=== PATIENT | female | born 1965 | race Caucasian/White ===

== ENCOUNTER → 2018-06-09 | Outpatient (CLI) | payer OTHER ==
[~2018-06-09] MED LIST: ATEN25 PO; ATEN50; ATEN50 PO; Afrin15 ML INH; CETI5 PO; DILT120ERA PO; ESOM20 PO; HYDR1TAB94 PO; IBUP600; IBUP600 PO; IBUP800 PO; IRON; IRON150C PO; LISI20 PO; LORA2 PO; LOSA50 PO; ONDA4ODT MM; OXYACE5T PO; Omeprazole20 M1 PO; PROM25 PO; RXLORA1 PO; SERT50 PO; SULTRIDS PO; TETR250 PO; TRAM50; TRAM50 PO
[2018-07-30 10:07] LABS: Performing Lab SYMBIODX; Test Name TISSUE BLOCK
[2018-07-30 10:08] LABS: Result SEE PATHOTH RESULTS
== END ==
LOC: LAB 09:50 → LAB SHORT 09:50
PROVIDERS: Internal Medicine Hematology & Oncology
DX: C18.2 Malignant neoplasm of ascending colon (principal)
CPT/HCPCS: 88341; 88342

== ENCOUNTER → 2018-08-27 | Outpatient (CLI) | payer OTHER | END | disposition home or self-care (01) | LOC: LAB SHORT 09:01 → LAB 09:01 → EDSTATUS 08-26 15:50 → LAB FUT 08-26 15:50 | DX: N39.0 Urinary tract infection, site not specified (principal) | CPT/HCPCS: 87086 ==

== ENCOUNTER 2019-05-24 05:53 | Day surgery (SDC) | payer OTHER ==
[~2019-05-24] VITALS: Ht 162.6 cm; Wt 97.0 kg
[~2019-05-24 05:53] MED LIST changes: +Flonase 0.05% N16 GM; +HYDCHL25 PO; +LIDOCAINE PAIN1 EACH TOP; +OMEPRAZOLE20 MG PO; +Ondansetron Odt8 MG PO; +Pataday2.5 ML BOTHEYES; +VISINE-A EYE AL15 ML BOTHEYES; +[UNRECOGNIZED DRUG - OTHER]
--- NOTE | 2019-05-24 06:53 | NUR ---
Ambulatory in Day Surgery. History, Chart, Medications and Allergies reviewed before start of procedure. Lungs clear T/O to Auscultation. Patient confirms NPO status and agrees with scheduled surgery. Pre-Op teaching done. Pt verbalizes understanding. Patient States Post-Procedure ride home has been arranged.
--- NOTE | 2019-05-24 11:04 | NUR ---
Patient up to Ambulate independently. Gait steady. Discharge instructions reviewed with patient. Patient verbalizes understanding. Copy given to patient to take home. Discharged via wheelchair to private car for ride home WITH .
--- NOTE | 2019-05-25 13:33 | NUR ---
05/25/19 1333 Meggan Hutton VERIFICATIONS: EDIT CHART.
== END 2019-05-24 22:53 | disposition home or self-care (01) ==
LOC: ORSCMMR 05:53 → ORD 07:30 → ORSCSDS 07:30 → ORSCMMR 22:53
PROVIDERS: Surgery
PROC: 0WUF0JZ Supplement Abdominal Wall with Synthetic Substitute, Open Approach (ICD-10-PCS; principal; 2019-05-24 07:30)
DX: K43.2 Incisional hernia without obstruction or gangrene (principal); Z85.038 Personal history of other malignant neoplasm of large intestine; I10 Essential (primary) hypertension; E78.1 Pure hyperglyceridemia; E66.01 Morbid (severe) obesity due to excess calories; Z68.36 Body mass index [BMI] 36.0-36.9, adult; Z79.899 Other long term (current) drug therapy
CPT/HCPCS: A9270-GY; C1713; C1781; J0171; J0690; J1100; J2250; J2405; J2704; J2710; J3010; J7120

== ENCOUNTER 2019-07-01 12:12 | Day surgery (SDC) | payer OTHER ==
[~2019-07-01] VITALS: Ht 162.6 cm; Wt 94.1 kg
[~2019-07-01 12:12] MED LIST changes: +DILTIAZEM 24HR240 M2 PO; +LOSARTAN POTAS100 MG PO; +Nasonex17 GM
== END 2019-07-01 14:43 | disposition home or self-care (01) ==
LOC: ORSCSDS 12:12
PROVIDERS: Surgery
PROC: 0DJD8ZZ Inspection of Lower Intestinal Tract, Via Natural or Artificial Opening Endoscopic (ICD-10-PCS; principal; 2019-07-01 13:45)
DX: Z85.038 Personal history of other malignant neoplasm of large intestine (principal); K64.8 Other hemorrhoids; I10 Essential (primary) hypertension; E78.1 Pure hyperglyceridemia; F41.9 Anxiety disorder, unspecified; Z79.899 Other long term (current) drug therapy
CPT/HCPCS: J2250; J2704; J7120

== ENCOUNTER → 2020-01-06 | Outpatient (CLI) | payer OTHER | END | disposition home or self-care (01) | LOC: LAB SHORT 15:27 → LAB 15:27 | DX: R10.9 Unspecified abdominal pain (principal) | CPT/HCPCS: 87086 ==

== ENCOUNTER 2020-05-20 22:17 | Emergency (ER) | payer OTHER ==
[~2020-05-20] VITALS: Ht 162.6 cm; Wt 97.1 kg
[2020-05-21] MEDS ORDERED: Norco 5-325 Ta1 EACH PO (01:12)
[2020-05-21] MEDS ORDERED: CRUTCH4 XX (01:12)
== END 2020-05-21 01:30 | disposition home or self-care (01) ==
LOC: ER 22:17
DX: S93.401A Sprain of unspecified ligament of right ankle, initial encounter (principal); I10 Essential (primary) hypertension; Z88.8 Allergy status to other drugs, medicaments and biological substances; Z79.899 Other long term (current) drug therapy; X50.1XXA Overexertion from prolonged static or awkward postures, initial encounter
CPT/HCPCS: 73610; 99283-25; A9270

== ENCOUNTER 2020-06-02 12:01 | Day surgery (SDC) | payer OTHER ==
[~2020-06-02] VITALS: Ht 162.6 cm; Wt 98.9 kg
[~2020-06-02 12:01] MED LIST changes: +ALLO100 PO; +ARNUITY ELLIP100 MCG INH; +Aldactone100 MG PO; +COLCHICINE0.6 MG PO; +CRUTCH4 XX; +MONT10T PO; +Norco 5-325 Ta1 EACH PO
== END 2020-06-02 17:00 | disposition home or self-care (01) ==
LOC: ORSCSDS 12:01
PROVIDERS: Podiatrist Foot & Ankle Surgery
PROC: 0LQV0ZZ Repair Right Foot Tendon, Open Approach (ICD-10-PCS; principal; 2020-06-02 13:45)
PROC: 0QSL04Z Reposition Right Tarsal with Internal Fixation Device, Open Approach (ICD-10-PCS; principal; 2020-06-02 13:45)
DX: S92.011A Displaced fracture of body of right calcaneus, initial encounter for closed fracture (principal); S86.311A Strain of muscle(s) and tendon(s) of peroneal muscle group at lower leg level, right leg, initial encounter; I10 Essential (primary) hypertension; E66.01 Morbid (severe) obesity due to excess calories; Z68.37 Body mass index [BMI] 37.0-37.9, adult; Z79.899 Other long term (current) drug therapy
CPT/HCPCS: C1713; J0171; J0690; J1170; J2250; J2704; J3010; J7120